=== PATIENT | female | born 1985 | race African-American/Black ===

== ENCOUNTER 2017-10-29 14:51 | Emergency (ER) | payer OTHER ==
[2017-10-29 15:13] VITALS: BP 162/93; PULSE 76; TEMP 97.4; BMI 44.6
--- NOTE | 2017-10-29 15:14 | PDOC ---
Rapid Medical Evaluation Time Seen by Provider: 10/29/17 15:07 Medical Evaluation: Allergies Allergy/AdvReac Type Severity Reaction Status Date / Time No Known Drug Allergies Allergy Verified 07/03/15 04:05 10/29/17 15:07 I have performed a brief in-person evaluation of this patient. The patient presents with a chief complaint of: elevated BP, ran out pills X 1wk , h/o HTN, now with CARLTON since yesterday and CP since yesterday. Took Bp med today Pertinent physical exam findings:, CTA, S1/S2, RRR, non focal neuro exam I have ordered the following: EKG, CBC, CMP, trop, UCG The patient will proceed to the ED for further evaluation.
[2017-10-29 16:23] LABS: HEMOGLOBIN 12.4 GM/dL (10.7-15.3); MCH 27.5 pg (25.7-33.7); MCHC 33.4 g/dl (32.0-36.0); MEAN CELL VOLUME 82.3 fl (80-96); MEAN PLT VOLUME 7.9 fl (7.5-11.1); PLATELET COUNT 305 K/MM3 (134-434); RDW 15.5 % (11.6-15.6); WHITE BLOOD COUNT 6.3 K/mm3 (4.0-10.0)
[2017-10-29] MEDS ORDERED: SODIUM CHLORIDE 1,000 ML IV STA (16:30)
[2017-10-29] MEDS ORDERED: ACETAMINOPHEN 325 MG TABLET (FP) PO ONE (16:38)
--- NOTE | 2017-10-29 16:50 | PDOC ---
Attending Attestation - HPI HPI: 10/29/17 17:25 The patient is a 32 year old female with past medical history of HTN and chronic lower back pain presents to the emergency department with multiple complains. The patient reports upper back pain and chest pain since yesterday, accompanied with elevated blood pressure of 179/140 and neck weakness which she states feels like pain shooting up and down her neck. The patient states after taking her HTN pills earlier today, an acute onset of intermittent headache presented. The patient states her HTN medication finished a week ago and was unable to fill it. The patient states she went a week without taking her medication then started back on Amlodipine. The patient states at the ED shes been having episodes of nausea, denies any vomiting. Denies any change in appetite. Denies fever, chills or a cough. Denies shortness of breath or palpitations. Denies abdominal pain. Denies leg swelling. Denies diarrhea or constipation. Denies dysuria, hematuria, frequency or urgency to urinate. Allergies: NKDA Social history: None reported Surgical history: None reported PCP: Dr. Boswell - Medical Decision Making 10/29/17 17:25 Documentation prepared by Regine Montiel, acting as medical office manager for Sharon Jimenez MD. <Regine Montiel - Last Filed: 10/29/17 17:25> - Resident Resident Name: Jace Torres - ED Attending Attestation I have performed the following: I have examined & evaluated the patient, The case was reviewed & discussed with the resident, I agree w/resident's findings & plan, Exceptions are as noted - Physicial Exam PE: GENERAL: Awake, alert, and fully oriented, in no acute distress HEAD: No signs of trauma EYES: PERRLA, EOMI, sclera anicteric, conjunctiva clear ENT: Auricles normal inspection, hearing grossly normal, nares patent, oropharynx clear without exudates. Moist mucosa NECK: Normal ROM, supple, no lymphadenopathy, JVD, or masses. +Muscle spasm to L trapezius muscle. LUNGS: Breath sounds equal, clear to auscultation bilaterally. No wheezes, and no crackles HEART: Regular rate and rhythm, normal S1 and S2, no murmurs, rubs or gallops ABDOMEN: Soft, nontender, normoactive bowel sounds. No guarding, no rebound. No masses EXTREMITIES: Normal range of motion, no edema. No clubbing or cyanosis. No cords, erythema, or tenderness NEUROLOGICAL: Cranial nerves II through XII grossly intact. Normal speech, normal gait SKIN: Warm, Dry, normal turgor, no rashes or lesions noted. - Medical Decision Making Pt noted to have neck spasm on L side, which may explain the headache. No neuro deficits. She has pain to L scapula that is reproducible with ROM of the L arm. Cardiac w/u within normal limits. Likely MSK pain. Will treat with analgesics. Continue HTN meds and f/u with PMD. Stable for DC home. <Sharon Jimenez - Last Filed: 10/29/17 17:38>
[2017-10-29] MEDS ORDERED: ACETAMINOPHEN 325 MG TABLET (FP) ONE (16:53)
[2017-10-29 16:56] LABS: ALBUMIN 3.4 g/dl (3.4-5.0); ANION GAP 5 (8-16); BLOOD UREA NITROGEN 9 mg/dL (7-18); CALCIUM 8.4 mg/dL (8.5-10.1); CHLORIDE 105 mmol/L (98-107); CO2 29 mmol/L (21-32); CREATININE 0.9 mg/dL (0.55-1.02); GLUCOSE,RANDOM 90 mg/dL (74-106); POTASSIUM 3.9 mmol/L (3.5-5.1); SGOT/AST 22 U/L (15-37); SGPT/ALT 35 U/L (12-78); SODIUM 139 mmol/L (136-145)
[2017-10-29 17:00] LABS: ALK PHOS 84 U/L (45-117); BILIRUBIN,TOTAL 0.2 mg/dL (0.2-1.0); TOT PROT 7.8 g/dl (6.4-8.2)
--- NOTE | 2017-10-29 17:13 | PDOC ---
History of Present Illness - General Chief Complaint: Chest Pain Stated Complaint: ELVEVATED BP, DIZZINESS Time Seen by Provider: 10/29/17 15:07 History Source: Patient Exam Limitations: No Limitations - History of Present Illness Initial Comments: 10/29/17 17:08 Patient is a 32F with history of HTN here today complaining of chest pain, back pain and headache. She states that she thinks her pain is happening because of an increase in her blood pressure due to her running out of her medication. Her chest pain is worsened with inspiration. Her headache onset insidiously and is located in the front of her head radiating to her neck. Her back pain runs along her trapezius. She denies fevers, chills, nausea, and vomiting. She denies leg swelling, history of blood clots and recent travel. She denies IVDU, focal weakness, urinary issues and saddle anesthesia. Past History - Past Medical History Allergies/Adverse Reactions: Allergies Allergy/AdvReac Type Severity Reaction Status Date / Time No Known Drug Allergies Allergy Verified 10/29/17 15:10 Home Medications: Ambulatory Orders Ferrous Sulfate 325 mg PO DAILY 05/16/15 Nifedipine ER [Procardia XL -] 1 tab PO DAILY 05/16/15 Vit/Iron Fum/Folic AC [ Tablet] 1 tab PO DAILY 05/16/15 Asthma: No Cancer: No Cardiac Disorders: No CVA: No COPD: No Diabetes: No HTN: Yes Liver Disease: No Seizures: No Thyroid Disease: No - Reproductive History (#): 5 Para: 3 Therapeutic (s) & number: Yes (1) Spontaneous : 0 - Suicide/Smoking/Psychosocial Hx Smoking Status: No Smoking History: Never smoked Have you smoked in the past 12 months: No Number of Cigarettes Smoked Daily: 0 Hx Alcohol Use: No Drug/Substance Use Hx: No Substance Use Type: None Hx Substance Use Treatment: No Review of Systems - Review of Systems Comments:: 10/29/17 17:11 GENERAL/CONSTITUTIONAL: No fever or chills. No weakness. HEAD, EYES, EARS, NOSE AND THROAT: No change in vision. No sore throat. CARDIOVASCULAR: +chest pain. No shortness of breath RESPIRATORY: No cough, wheezing, or hemoptysis. GASTROINTESTINAL: No nausea, vomiting, diarrhea or constipation. GENITOURINARY: No dysuria, frequency, or change in urination. MUSCULOSKELETAL: No joint or muscle swelling or pain. + neck and back pain. SKIN: No rash NEUROLOGIC: No headache, vertigo, loss of consciousness, or change in strength/ sensation. ENDOCRINE: No increased thirst. No abnormal weight change HEMATOLOGIC/LYMPHATIC: No anemia, easy bleeding, or history of blood clots. ALLERGIC/IMMUNOLOGIC: No hives or skin allergy. *Physical Exam - Vital Signs Last Vital Signs Temp Pulse Resp BP Pulse Ox 97.4 F L 76 16 162/93 100 10/29/17 15:10 10/29/17 15:10 10/29/17 15:10 10/29/17 15:10 10/29/17 15:10 - Physical Exam Comments: 10/29/17 17:13 GENERAL: Awake, alert, and fully oriented, in no acute distress HEAD: No signs of trauma, normocephalic, atraumatic EYES: PERRLA, EOMI, sclera anicteric, conjunctiva clear ENT: Auricles normal inspection, hearing grossly normal, nares patent, oropharynx clear without exudates. Moist mucosa NECK: Normal ROM, supple, no lymphadenopathy, JVD, or masses LUNGS: No distress, speaks full sentences, clear to auscultation bilaterally HEART: Regular rate and rhythm, normal S1 and S2, no murmurs, rubs or gallops, peripheral pulses normal and equal bilaterally. ABDOMEN: Soft, nontender, normoactive bowel sounds. No guarding, no rebound. No masses EXTREMITIES: Normal inspection, Normal range of motion, no edema. No clubbing or cyanosis. BACK: Tender along trapezius on left side NEUROLOGICAL: Cranial nerves II through XII grossly intact. Normal speech, normal gait, no focal sensorimotor deficits SKIN: Warm, Dry, normal turgor, no rashes or lesions noted. ED Treatment Course - LABORATORY CBC & Chemistry Diagram: 10/29/17 15:48 10/29/17 15:48 - ADDITIONAL ORDERS Additional order review: Laboratory Results 10/29/17 10/29/17 15:55 15:48 Sodium 139 Potassium 3.9 Chloride 105 Carbon Dioxide 29 Anion Gap 5 L BUN 9 Creatinine 0.9 Creat Clearance w eGFR > 60 Random Glucose 90 Calcium 8.4 L Total Bilirubin 0.2 AST 22 ALT 35 Alkaline Phosphatase 84 Creatine Kinase 288 H Troponin I < 0.02 Total Protein 7.8 Albumin 3.4 Urine HCG, Qual Negative 10/29/17 15:48 RBC 4.50 MCV 82.3 MCHC 33.4 RDW 15.5 MPV 7.9 - RADIOLOGY Radiology Studies Ordered: Category Date Time Status CHEST PA & LAT [RAD] Stat Radiology 10/29/17 16:29 Taken - Medications Given in the ED: ED Medications Discontinued Medications Generic Name Dose Route Start Last Admin Trade Name Luis PRN Reason Stop Dose Admin Acetaminophen 650 mg 10/29/17 16:38 10/29/17 16:59 Tylenol - PO 10/29/17 16:39 650 mg ONCE ONE Administration Sodium Chloride 1,000 mls @ 1,000 mls/hr 10/29/17 16:30 10/29/17 16:47 Normal Saline - IV 10/29/17 17:29 Not Given ASDIR STA Medical Decision Making - Medical Decision Making 10/29/17 17:14 Patient is 32F with history of HTN here today with chest pain, headache and back pain. Vital signs stable. Do not strongly suspect cardiac etiology, suspect pain is all secondary to muscle pain. Will evaluate for acs, arrhythmia , pneumonia. EKG shows normal sinus rhythm with left anterior fascicular block pattern. T wave inversions in I and aVL. No st elevations/depressions. CXR shows no acute cardiopulmonary process. 10/29/17 17:16 Laboratory Tests 10/29/17 10/29/17 10/29/17 15:48 15:48 15:55 WBC 6.3 Hgb 12.4 Plt Count 305 D BUN 9 Creatinine 0.9 Troponin I < 0.02 Urine HCG, Qual Negative CBC normal. CMP reassuring, troponin undetectable, upreg normal. Will discharge with instructions to follow up and primary care follow up. *DC/Admit/Observation/Transfer Diagnosis at time of Disposition: Chest pain - Discharge Dispostion Disposition: HOME Condition at time of disposition: Good Decision to Admit order: No - Referrals Referrals: [facility] [place] [Provider Group] - Patient Instructions Printed Discharge Instructions: DI for Chest Pain Additional Instructions: Please return if you have any new, worsening or concerning symptoms. Please follow up with your primary care physician in the next week. - Post Discharge Activity
--- NOTE | 2017-10-31 13:07 | EKG ---
Test Reason : Blood Pressure : / mmHG Vent. Rate : 070 BPM Atrial Rate : 070 BPM P-R Int : 184 ms QRS Dur : 108 ms QT Int : 416 ms P-R-T Axes : 048 -55 073 degrees QTc Int : 449 ms NORMAL SINUS RHYTHM LEFT ANTERIOR FASCICULAR BLOCK MINIMAL VOLTAGE CRITERIA FOR LVH, MAY BE NORMAL VARIANT NONSPECIFIC T WAVE ABNORMALITY ABNORMAL ECG NO PREVIOUS ECGS AVAILABLE Confirmed by NOA COHN, PETER ([id number]) on 10/31/2017 1:06:50 PM Referred By: Confirmed By:PETER LATHAM MD
== END 2017-10-29 17:34 | disposition home or self-care (01) ==
LOC: JER 14:51
DX: R07.9 Chest pain, unspecified (principal); M62.838 Other muscle spasm; I10 Essential (primary) hypertension; M54.5 Low back pain; G89.29 Other chronic pain; Z91.14 Patient's other noncompliance with medication regimen
CPT/HCPCS: 36415; 71046-TC-FY; 80053; 82550; 82553; 84484; 84703; 85027; 93005; 93010; 99283-25

== ENCOUNTER 2018-03-11 14:51 | Emergency (ER) | payer OTHER ==
[2018-03-11 15:09] VITALS: BP 144/78; PULSE 70; TEMP 98.6; BMI 44.6
[2018-03-11] MEDS ORDERED: ALBUTEROL SO4 2.5/IPRATROPIUM 0.5 INH SOL 3 ML VIAL.NEB. NEB ONE (15:16)
--- NOTE | 2018-03-11 15:16 | PDOC ---
Rapid Medical Evaluation Chief Complaint: Chest Pain Time Seen by Provider: 03/11/18 14:57 Medical Evaluation: Allergies Allergy/AdvReac Type Severity Reaction Status Date / Time No Known Drug Allergies Allergy Verified 03/11/18 15:02 03/11/18 15:03 I have performed a brief in-person evaluation of this patient. The patient presents with a chief complaint of: chest wall pain, more with movement/ deep inspiration, some cough. Seen at another hospital for same and identified was , was told was HTN caUSING PAIN. States had miscarraige at same stage of prev preg some years ago and is nervous. Pertinent physical exam findings: Lungs CTA but diminished , no rales / cough I have ordered the following: Duoneb to evaluate changes in resp status The patient will proceed to the ED for further evaluation Discharge Disposition - Diagnosis Chest pain - Referrals Referrals: Lavinia Boswell MD [Primary Care Provider] - - Patient Instructions - Post Discharge Activity
--- NOTE | 2018-03-11 17:51 | PDOC ---
History of Present Illness - General Chief Complaint: Chest Pain Stated Complaint: CHEST PAIN Time Seen by Provider: 03/11/18 14:57 History Source: Patient Exam Limitations: No Limitations - History of Present Illness Initial Comments: 03/11/18 18:56 Ms. Nguyen is a 32 yo F with hx of HTN at 12 weeks GA via US (at [facility]; no OBGYN retained) presents to the emergency department with chest pain and concurrent lower abdominal pain. The chest pain has been ongoing for 2 days, located in the left chest wall without radiation, described as sharp, without relieving factors and aggravates the pain with deep inspirations, and the pain has been constant. She endorses having concurrent SOB. Concurrently, she has had 1 week of lower abdominal pain that has been ongoing that worsens with movement. She denies vaginal bleeding and discharge. She states she had a miscarriage 2 years ago and is concerned for the status of the fetus. She endorses having sick contacts (daughter with recent URI). Denies having URI symptoms. Denies the following: fever, chills, visual changes, nausea, vomiting , diarrhea, hematochezia, melena, dysuria, and hematuria. Pmhx: Refer to above Shx: Denies hx Meds: anti-HTN medication (unsure of name) Allergies: NKDA Social hx: Denies tobacco, alcohol, and substance abuse. Past History - Past Medical History Allergies/Adverse Reactions: Allergies Allergy/AdvReac Type Severity Reaction Status Date / Time No Known Drug Allergies Allergy Verified 03/11/18 15:02 Home Medications: Ambulatory Orders Nifedipine ER [Procardia XL -] 1 tab PO DAILY 05/16/15 Vit/Iron Fum/Folic AC [ Tablet] 1 tab PO DAILY 05/16/15 Asthma: No Cancer: No Cardiac Disorders: No CVA: No COPD: No Diabetes: No HTN: Yes Liver Disease: No Seizures: No Thyroid Disease: No - Reproductive History (#): 5 Para: 3 Therapeutic (s) & number: Yes (1) Spontaneous : 0 - Suicide/Smoking/Psychosocial Hx Smoking Status: No Smoking History: Never smoked Have you smoked in the past 12 months: No Number of Cigarettes Smoked Daily: 0 Hx Alcohol Use: No Drug/Substance Use Hx: No Substance Use Type: None Hx Substance Use Treatment: No Review of Systems - Review of Systems Able to Perform ROS?: Yes Is the patient limited Croatian proficient: No Constitutional: No: Chills, Diaphoresis, Fever HEENTM: No: Recent change in vision, Nose Pain, Throat Pain Respiratory: Yes: Shortness of Breath Cardiac (ROS): Yes: Chest Pain. No: Palpitations, Syncope, Chest Tightness ABD/GI: No: Constipated, Diarrhea, Nausea, Poor Fluid Intake, Rectal Bleeding, Vomiting, Tarry Stools : No: Dysuria, Hematuria Musculoskeletal: No: Back Pain Integumentary: No: Bruising Neurological: Yes: Headache. No: Numbness Psychiatric: No: Stressors Endocrine: No: Unexplained Weight Loss Hematologic/Lymphatic: No: Anemia *Physical Exam - Vital Signs Last Vital Signs Temp Pulse Resp BP Pulse Ox 98.6 F 70 18 144/78 99 03/11/18 15:04 03/11/18 15:04 03/11/18 15:04 03/11/18 15:04 03/11/18 15:04 - Physical Exam General Appearance: Yes: Nourished, Appropriately Dressed HEENT: positive: EOMI, SOTO Neck: negative: Tender, Lymphadenopathy (R), Lymphadenopathy (L) Respiratory/Chest: positive: Lungs Clear, Normal Breath Sounds. negative: Chest Tender, Respiratory Distress, Accessory Muscle Use Cardiovascular: positive: Regular Rhythm, Regular Rate, S1, S2, Systolic Murmur (grade 1) Female Pelvic Exam: positive: normal external exam, other (unable to visualize the cervix (has a hx of short cervix). No blood in the vaginal vault noted. Minimal white discharge clumps on bimanual exam. Unable to palpate the cervix on bimanual exam. ). negative: vaginal bleeding Gastrointestinal/Abdominal: positive: Normal Bowel Sounds, Flat, Soft. negative : Tender, Pulsatile Mass Musculoskeletal: positive: Normal Inspection. negative: CVA Tenderness Extremity: positive: Normal Capillary Refill, Normal Inspection, Normal Range of Motion Integumentary: positive: Normal Color, Dry, Warm Neurologic: positive: Fully Oriented, Alert, Normal Mood/Affect ED Treatment Course - LABORATORY CBC & Chemistry Diagram: 03/11/18 18:10 03/11/18 18:10 *DC/Admit/Observation/Transfer Diagnosis at time of Disposition: Chest pain - Referrals Referrals: Lavinia Boswell MD [Primary Care Provider] - - Patient Instructions - Post Discharge Activity
[2018-03-11 18:13] LABS: HEMATOCRIT 36.4 % (32.4-45.2); HEMOGLOBIN 12.4 GM/dL (10.7-15.3); MCH 28.7 pg (25.7-33.7); MCHC 34.2 g/dl (32.0-36.0); MEAN CELL VOLUME 83.9 fl (80-96); MEAN PLT VOLUME 7.3 fl (7.5-11.1); PLATELET COUNT 311 K/MM3 (134-434); RBC 4.34 M/mm3 (3.60-5.2); RDW 16.1 % (11.6-15.6); WHITE BLOOD COUNT 7.1 K/mm3 (4.0-10.0)
[2018-03-11 18:49] LABS: URINE APPEARANCE CLEAR; URINE BILIRUBIN NEGATIVE (<2.0 mg/dL); URINE COLOR YELLOW; URINE GLUCOSE (UA) NEGATIVE (NEGATIVE); URINE KETONE TRACE (NEGATIVE); URINE LEUK ESTERASE NEGATIVE (NEGATIVE); URINE NITRITE NEGATIVE (NEGATIVE); URINE PROTEIN NEGATIVE (NEGATIVE); URINE UROBILINOGEN NEGATIVE mg/dL (0.2-1.0)
[2018-03-11 18:57] LABS: ALBUMIN 2.9 g/dl (3.4-5.0); ALK PHOS 56 U/L (45-117); ANION GAP 9 MMOL/L (8-16); BILIRUBIN,TOTAL 0.2 mg/dL (0.2-1); BLOOD UREA NITROGEN 7 mg/dL (7-18); CALCIUM 8.2 mg/dL (8.5-10.1); CHLORIDE 106 mmol/L (98-107); CO2 25 mmol/L (21-32); CREATININE 0.6 mg/dL (0.55-1.3); GLUCOSE,RANDOM 73 mg/dL (74-106); POTASSIUM 3.7 mmol/L (3.5-5.1); SGOT/AST 23 U/L (15-37); SGPT/ALT 46 U/L (13-61); SODIUM 140 mmol/L (136-145); TOT PROT 7.1 g/dl (6.4-8.2)
--- NOTE | 2018-03-11 19:12 | PDOC ---
*Physical Exam - Vital Signs Last Vital Signs Temp Pulse Resp BP Pulse Ox 98.6 F 70 18 144/78 99 03/11/18 15:04 03/11/18 15:04 03/11/18 15:04 03/11/18 15:04 03/11/18 15:04 - Physical Exam Comments: General: Comfortable, no acute distress HEENT: PERRL, EOMI, MMM, voice normal Cards: RRR Pulm: Comfortable on room air Abd: Soft, obese with pannus, not obviously gravid. Mild suprapubic tenderness. : (Witnessed. Completed by Dr Yoon). Normal external genitalia. No blood, lesions, or abrasions in vaginal canal. Small amount of clumping white discharge , slightly malodorous. General discomfort with exam but no cervical motion tenderness. Cervix could not be palpated nor visualized. Ext: Atraumatic. No LE edema. ROM intact. Strength 5/5 and equal bilaterally Vasc: Extremities WWP. Neuro: A&Ox3, CN grossly intact, normal speech, motor/sensory grossly intact and symmetric Psych: Mood appropriate to situation ED Treatment Course - LABORATORY CBC & Chemistry Diagram: 03/11/18 18:10 03/11/18 18:10 - ADDITIONAL ORDERS Additional order review: Laboratory Results 03/11/18 03/11/18 18:24 18:10 Sodium 140 Potassium 3.7 Chloride 106 Carbon Dioxide 25 Anion Gap 9 BUN 7 Creatinine 0.6 Creat Clearance w eGFR > 60 Random Glucose 73 L Calcium 8.2 L Total Bilirubin 0.2 AST 23 ALT 46 Alkaline Phosphatase 56 Creatine Kinase 149 Troponin I < 0.02 Total Protein 7.1 Albumin 2.9 L Beta HCG, Quant 50324.9 Urine Color Yellow Urine Appearance Clear Urine pH 5.0 Ur Specific [place] 1.024 Urine Protein Negative Urine Glucose (UA) Negative Urine Ketones Trace H Urine Blood 3+ H Urine Nitrite Negative Urine Bilirubin Negative Urine Urobilinogen Negative Ur Leukocyte Esterase Negative 03/11/18 18:10 RBC 4.34 MCV 83.9 MCHC 34.2 RDW 16.1 H MPV 7.3 L Medical Decision Making - Medical Decision Making 03/11/18 19:14 Mary Nguyen is a 32yo woman currently at 12wks by US who presents reporting chest pain for 2 days and b/l lower abdominal and back pain. She reports that she has had similar pain during her previous pregnancies but was concerned due to miscarriage. ED course so far notable for - Normal EKG - Labs reviewed, no concerning abnormalities. Small blood in UA but no protein, trace ketones, no UTI. - [facility] [place] [id number] - Ultrasound reviewed. Per radiology report, single live IUP with estimated age 12w6d. FHR 163. Cervix is closed. Left ovary with small simple cyst/vollicle measuring 1.4cm. No free fluid noted. - Pelvic exam w/o blood. Some generalized tenderness, but no cervical motion tenderness. Small amount of clumping white discharge suggestive of yeast infection. Plan to discharge home with prescription for antifungal for yeast infection. Will refer for follow up with obstetrics. Results and plan discussed with patient, she states understanding and agreement. Discussed with Dr Mccormick. Josephine Fall PGY1 *DC/Admit/Observation/Transfer Diagnosis at time of Disposition: Chest pain Qualifiers: Chest pain type: unspecified Qualified Code(s): R07.9 - Chest pain, unspecified Abdominal pain in Qualifiers: Trimester: first trimester Qualified Code(s): O26.891 - Other specified related conditions, first trimester - Discharge Dispostion Disposition: HOME Condition at time of disposition: Stable Decision to Admit order: No - Prescriptions Prescriptions: Miconazole/Cleanser 17 On Wipe [Monistat 3 Combo Pack] 1 each VG HS #1 kit - Referrals Referrals: Lavinia Boswell MD [Primary Care Provider] - Dary Payne MD [Staff Physician] - - Patient Instructions Printed Discharge Instructions: DI for Atypical Chest Pain, DI for Abdominal Pain -- Early Additional Instructions: Discharge Instructions: - You were seen in the ED for abdominal pain and chest pain during your . - You had a heart study called an EKG that was normal. Your pain is most likely muscular in nature, though you should follow up with your primary doctor in the next 2-3 days for additional management as needed. You may use acetaminophen ( Tylenol) or hot/cold packs for continued pain. - You also had an ultrasound and pelvic exam to evaluate your abdominal pain. The ultrasound showed a healthy and found a heart rate of 163 beats per minute. Your pelivc exam did not show any bleeding, though you did appear to have a yeast infection. It is possible that this is causing some of your discomfort, though abdominal pain in is common and is not necessarily an indication that something is wrong. - Make an appointment to follow up with an manager logistic within the next week. You have been referred to Dr Payne if you would like to establish care at [facility]. Otherwise, you should make an appointment at [facility] where you were seen previously. - Return to the ED if you have chest pain along with shortness of breath, sweating, nausea/vomiting, or lightheadedness. Also seek medical care if you have significant vaginal bleeding along with passing clots, severe abdominal or back cramping, or if you have any other medical emergency. - Post Discharge Activity
[2018-03-11 19:16] LABS: EPI CELLS RARE /HPF (FEW); URINE BACTERIA RARE /hpf (NONE SEEN); URINE MUCUS RARE
--- NOTE | 2018-03-11 19:18 | PDOC ---
Attending Attestation - HPI HPI: 03/11/18 19:27 The patient is a 32 year old 12 weeks female, with a significant past medical history of HTN, who presents to the emergency department with, 2 days of chest pain and suprapubic pain. She describes her chest pain as sharp, localized to the chest wall and lateral breasts, intermittent for the past 2 days but, worsening to constant over the past few hours. She notes the associated shortness of breath. She denies any abnormal vaginal discharge or bleeding. Allergies: NKDA Primary Care Physician: Dr. Boswell - Physicial Exam PE: 03/11/18 20:14 GENERAL: Well-appearing, well-nourished. No apparent distress. HEENT: Normocephalic, atraumatic. PERRL, EOM intact. CARDIOVASCULAR: Normal S1, S2. Regular rate and rhythm. PULMONARY: Clear to auscultation bilaterally. ABDOMEN: Soft, non-distended, non-tender. PELVIC: Refer to resident exam. EXTREMITIES: Normal ROM in all four extremities. No gross deformities. SKIN: Warm, dry. No rash NEUROLOGICAL: Ambulating around the ER. No focal neurological deficits. <Blanka Arauz - Last Filed: 03/11/18 20:14> - Resident Resident Name: Zander Yoon - ED Attending Attestation I have performed the following: I have examined & evaluated the patient, The case was reviewed & discussed with the resident, I agree w/resident's findings & plan, Exceptions are as noted - HPI HPI: 03/11/18 19:16 this 32-year-old female is 12 weeks she has had chest pain for a few days but today the pain has been constant - Medical Decision Making 03/13/18 02:20 plan follow up with accounts receivable bookkeeper imp 12 weeks 6 days, musculoskelatal chest pain <Radha Mccormick - Last Filed: 03/13/18 02:20> Attestations - Attestations 03/11/18 19:28 Documentation prepared by Blanka Arauz, acting as emergency medicine medical director for Radha Mccormick MD. <Blanka Arauz - Last Filed: 03/11/18 20:14>
--- NOTE | 2018-03-12 12:09 | EKG ---
Test Reason : Blood Pressure : / mmHG Vent. Rate : 067 BPM Atrial Rate : 067 BPM P-R Int : 184 ms QRS Dur : 106 ms QT Int : 414 ms P-R-T Axes : 036 -43 053 degrees QTc Int : 437 ms NORMAL SINUS RHYTHM LEFT AXIS DEVIATION ABNORMAL ECG Confirmed by MD LASHAY, JOYCE ([id number]) on 03/12/2018 12:09:19 PM Referred By: Confirmed By:JOYCE METZ MD
== END 2018-03-11 20:36 | disposition home or self-care (01) ==
LOC: JER 14:51
PROC: 3E0F7GC Introduction of Other Therapeutic Substance into Respiratory Tract, Via Natural or Artificial Opening (ICD-10-PCS; principal; 2018-03-11)
DX: O26.891 Other specified pregnancy related conditions, first trimester (principal); R07.9 Chest pain, unspecified; O10.911 Unspecified pre-existing hypertension complicating pregnancy, first trimester; Z3A.12 12 weeks gestation of pregnancy
CPT/HCPCS: 36415; 76801-TC; 80053; 81003; 81015; 82550; 84484; 84702; 85027; 87086; 93005; 93010; 94640; 99283-25